=== PATIENT | male | born 1980 | race Caucasian/White ===

== ENCOUNTER 2019-09-24 16:05 | Emergency (ER) | payer OTHER ==
[2019-09-24 16:13] VITALS: BP 150/83; PULSE 83; TEMP 99.1; BMI 23.5
--- NOTE | 2019-09-24 16:21 | PDOC ---
History of Present Illness - General Chief Complaint: Pain, Acute Stated Complaint: left arm pain Time Seen by Provider: 09/24/19 16:14 History Source: Patient Exam Limitations: No Limitations - History of Present Illness Initial Comments: 09/24/19 16:16 39y M no pmhx presents with L arm pain. Patient was in his usual state of health this morning when he slipped while walking down the stairs, When he slipped he was able to twist landed on his left side with his side bearing the brunt of the fall And then tumbled down About 6 steps the patient denies any head injury, neck pain, LOC, numbness, tingling, weakness, abdominal pain. Patient does endorse mild pain on the distal L upper arm And an abrasion on the distal forearm. Patient states she took Motrin which helped and has been icing it however still sore so came to ensure everything is okay. The patient denies any syncope or prodrome of syncope prior to the fall Including any chest pain, shortness of breath, lightheadedness, nausea, vomiting, Blurry vision, palpitations. ROS Constitutional - no reported Fever, Chills, HEENT: no reported vision changes, Respiratory: no reported sob, Cardiac: no reported chest pain, palpitations, light headedness, Abd/GI: no reported abd pain, nausea, vomiting, Musculskelatal - +L arm pain no reported back pain, joint swelling skin - +abrasion no reported bruising, erythema, rash neurological: no reported headache, numbness, focal weakness, tingling, ataxia, hematologic: no reported easy bruising, easy bleeding Exam: GENERAL: The patient is awake, alert, and fully oriented, Nontoxic - in no acute distress. HEAD: Normocephalic, atraumatic. NECK: Normal range of motion, supple ABDOMEN: Soft, nontender, EXTREMITIES: Tenderness on the distal humerus of the left arm, normal range of motion including flexion extension supination pronation of the left elbow, No significant bruising noted, large linear abrasion noted on the distal forearm. NEUROLOGICAL: No facial assymetry, Normal speech, SKIN: Warm, Dry, normal turgor, will obtain xray to r/o fx suspect contusion no neuro deficits pt declines any pain meds at this time Past History - Past Medical History Allergies/Adverse Reactions: Allergies Allergy/AdvReac Type Severity Reaction Status Date / Time No Known Allergies Allergy Verified 09/24/19 16:06 Home Medications: Ambulatory Orders NK [No Known Home Medication] 09/24/19 COPD: No Other medical history: denies - Psycho Social/Smoking Cessation Hx Smoking History: Never smoked Hx Alcohol Use: Yes (social) Drug/Substance Use Hx: No *Physical Exam - Vital Signs Last Vital Signs Temp Pulse Resp BP Pulse Ox 99.1 F 83 15 150/83 100 09/24/19 16:06 09/24/19 16:06 09/24/19 16:06 09/24/19 16:06 09/24/19 16:06 ED Treatment Course - RADIOLOGY Radiology Studies Ordered: Category Date Time Status ELBOW-LEFT [RAD] Stat Radiology 09/24/19 16:15 Ordered Medical Decision Making - Medical Decision Making 09/24/19 17:05 xray neg for fx will dc with suppotive care Discharge - Discharge Information Problems reviewed: Yes Clinical Impression/Diagnosis: Contusion of arm, left Qualifiers: Encounter type: initial encounter Qualified Code(s): S40.022A - Contusion of left upper arm, initial encounter Abrasion of left arm Qualifiers: Encounter type: initial encounter Qualified Code(s): S40.812A - Abrasion of left upper arm, initial encounter Fall due to ice or snow Qualifiers: Encounter type: initial encounter Qualified Code(s): W00.9XXA - Unspecified fall due to ice and snow, initial encounter Condition: Stable Disposition: HOME - Admission No - Follow up/Referral Referrals: Gary Alvarado [Primary Care Provider] - - Patient Discharge Instructions Patient Printed Discharge Instructions: DI for Arm Pain Additional Instructions: Return to the emergency department immediately with ANY new, persistent or worsening symptoms. You MUST call and follow up with your doctor tomorrow for further evaluation of your symptoms. Results were discussed with you. Please make sure your doctor reviews the results of your emergency evaluation. Your Emergency Department visit is not complete without a follow up with your doctor. If you had any xrays during your visit, it was read preliminarily by myself, a Radiologist will review it and if there are any additional findings we will call you. - Post Discharge Activity Work/Back to School Note: Back to Work
== END 2019-09-24 17:10 | disposition home or self-care (01) ==
LOC: FER 16:05
DX: S40.812A Abrasion of left upper arm, initial encounter (principal); S40.022A Contusion of left upper arm, initial encounter; W10.9XXA Fall (on) (from) unspecified stairs and steps, initial encounter; Y93.89 Activity, other specified; Y92.89 Other specified places as the place of occurrence of the external cause
CPT/HCPCS: 73070-TC-LT-FY; 99282-25